=== PATIENT | male | born 1950 | race Caucasian/White ===

== ENCOUNTER 2017-08-28 09:25 | Day surgery (SDC) | payer MEDICARE ==
[2017-08-28] MEDS: LIDOCAINE 1% SDV 5 ML VIAL As Ordered (06:33)
[~2017-08-28 09:25] MED LIST: ACETAMINOPHEN 325 MG TAB PO; PHENYLEPHRINE HCL 10 % OPHTH. SOL 5ML OS
[2017-08-28] MEDS ORDERED: fentaNYL 100 MCG/2 ML INJECTION (J3010) As Ordered (09:32)
[2017-08-28] MEDS ORDERED: PHENYLEPHRINE 2.5% OPHTH SOL 2ML As Ordered (09:32)
[2017-08-28] MEDS ORDERED: MIDAZOLAM INJ 2 MG/2 ML VIAL (J2250) As Ordered (09:32)
[2017-08-28] MEDS ORDERED: CYCLOPENTOLATE 2% OPHTH SOLN 2ML BTL As Ordered (09:32)
[2017-08-28] MEDS ORDERED: TROPICAMIDE 1% OPHTH SOLN 2ML As Ordered (09:32)
[2017-08-28] MEDS ORDERED: OFLOXACIN 0.3 % (OCUFLOX) OPTH SOL 5ML As Ordered (09:32)
[2017-08-28] MEDS ORDERED: TRIMETHOBENZAMIDE 300 MG CAP PO (09:45)
[2017-08-28 09:58] LABS: BEDSIDE GLUCOSE 86 MG/DL (80-115)
[2017-08-28] MEDS: LIDOCAINE 3.5 % 1ML OPHTH TOPICAL GEL OU (10:03)
[2017-08-28] MEDS: OFLOXACIN 0.3 % (OCUFLOX) OPTH SOL 5ML OS (10:03)
[2017-08-28] MEDS: PHENYLEPHRINE 2.5% OPHTH SOL 2ML OS (10:03)
[2017-08-28] MEDS: TROPICAMIDE 1% OPHTH SOLN 2ML OS (10:04)
[2017-08-28] MEDS: CYCLOPENTOLATE 2% OPHTH SOLN 2ML BTL OS (10:04)
[2017-08-28] MEDS: HEALON DUET (HEALON 10MG/ML 0.55ML & HEALON ENDOCOAT 30MG/ML 0.85ML) As Ordered (10:42)
[2017-08-28] MEDS: BSS with VANC/TOB/EPI for EYE CASES IR (10:42)
[2017-08-28] MEDS: TRIAMCINOLONE PRES FR 40 MG/ML 1ML(TRIESENCE)(OR EYE ONLY)(J3300 PER 1MG) As Ordered (10:42)
[2017-08-28] MEDS: POVIDONE-IODINE 5% OPHTH PREP SOL 30ML As Ordered (10:42)
[2017-08-28] MEDS: MOXIFLOXACIN IN BSS 0.25MG/0.25ML INTRACAMERAL INJ (OR EYE ONLY)(J2280) As Ordered (10:42)
[2017-08-28] MEDS: AcetaZOLAMIDE 500 MG ER CAP PO (11:10)
[2017-08-28] MEDS ORDERED: LR 1,000 ML IV (11:15)
== END 2017-08-28 11:30 | disposition home or self-care (01) ==
LOC: M SDC 09:25
DX: H26.9 Unspecified cataract (principal); I10 Essential (primary) hypertension; E11.9 Type 2 diabetes mellitus without complications; M19.90 Unspecified osteoarthritis, unspecified site; R21 Rash and other nonspecific skin eruption; F31.9 Bipolar disorder, unspecified; N40.0 Benign prostatic hyperplasia without lower urinary tract symptoms; R32 Unspecified urinary incontinence; I34.0 Nonrheumatic mitral (valve) insufficiency; Z87.891 Personal history of nicotine dependence; Z79.899 Other long term (current) drug therapy; Z79.82 Long term (current) use of aspirin; Z79.84 Long term (current) use of oral hypoglycemic drugs; Z88.6 Allergy status to analgesic agent; Z91.030 Bee allergy status
CPT/HCPCS: 66984

== ENCOUNTER 2017-10-01 08:46 | Day surgery (SDC) | payer MEDICARE ==
[~2017-10-01 08:46] MED LIST changes: +PHENYLEPHRINE HCL 10 % OPHTH. SOL 5ML OD; -PHENYLEPHRINE HCL 10 % OPHTH. SOL 5ML OS
[2017-10-01] MEDS ORDERED: TRIMETHOBENZAMIDE 300 MG CAP PO (09:00)
[2017-10-01] MEDS ORDERED: TROPICAMIDE 1% OPHTH SOLN 2ML As Ordered (09:09)
[2017-10-01] MEDS ORDERED: OFLOXACIN 0.3 % (OCUFLOX) OPTH SOL 5ML As Ordered (09:09)
[2017-10-01] MEDS ORDERED: CYCLOPENTOLATE 2% OPHTH SOLN 2ML BTL As Ordered (09:09)
[2017-10-01] MEDS ORDERED: PHENYLEPHRINE 2.5% OPHTH SOL 2ML As Ordered (09:09)
[2017-10-01 09:27] LABS: BEDSIDE GLUCOSE 90 MG/DL (80-115)
[2017-10-01] MEDS: TROPICAMIDE 1% OPHTH SOLN 2ML OD (09:33)
[2017-10-01] MEDS: OFLOXACIN 0.3 % (OCUFLOX) OPTH SOL 5ML OD (09:33)
[2017-10-01] MEDS: CYCLOPENTOLATE 2% OPHTH SOLN 2ML BTL OD (09:33)
[2017-10-01] MEDS: LIDOCAINE 3.5 % 1ML OPHTH TOPICAL GEL OU (09:33)
[2017-10-01] MEDS: PHENYLEPHRINE 2.5% OPHTH SOL 2ML OD (09:34)
[2017-10-01] MEDS: POVIDONE-IODINE 5% OPHTH PREP SOL 30ML As Ordered (10:30)
[2017-10-01] MEDS: BSS with VANC/TOB/EPI for EYE CASES IR (10:33)
[2017-10-01] MEDS: LIDOCAINE 1% SDV 5 ML VIAL As Ordered (10:33)
[2017-10-01] MEDS ORDERED: fentaNYL 100 MCG/2 ML INJECTION (J3010) As Ordered (10:34)
[2017-10-01] MEDS ORDERED: MIDAZOLAM INJ 2 MG/2 ML VIAL (J2250) As Ordered (10:34)
[2017-10-01] MEDS: HEALON DUET (HEALON 10MG/ML 0.55ML & HEALON ENDOCOAT 30MG/ML 0.85ML) As Ordered (10:36)
[2017-10-01] MEDS: TRIAMCINOLONE PRES FR 40 MG/ML 1ML(TRIESENCE)(OR EYE ONLY)(J3300 PER 1MG) As Ordered (10:37)
[2017-10-01] MEDS: CEFUROXIME 1MG/0.1ML INTRACAMERAL INJ As Ordered (10:37)
[2017-10-01] MEDS: AcetaZOLAMIDE 500 MG ER CAP PO (11:13)
== END 2017-10-01 11:32 | disposition home or self-care (01) ==
LOC: M SDC 08:46
DX: H25.9 Unspecified age-related cataract (principal); I10 Essential (primary) hypertension; E78.5 Hyperlipidemia, unspecified; E03.9 Hypothyroidism, unspecified; K21.9 Gastro-esophageal reflux disease without esophagitis; Z79.82 Long term (current) use of aspirin; Z79.899 Other long term (current) drug therapy
CPT/HCPCS: 66984